=== PATIENT | female | born 1990 | race African-American/Black ===

== ENCOUNTER 2016-12-29 05:03 | Emergency (ER) | payer MEDICAID ==
[~2016-12-29] VITALS: Ht 175.3 cm; Wt 65.0 kg
[~2016-12-29 05:03] MED LIST: DOXY100T PO; MACR100C PO
[2016-12-29 05:05] VITALS: BP 137/80; PULSE 80; RESP 16; TEMP 97.9; O2SAT 100
--- NOTE | 2016-12-29 05:19 | PD ---
HPI Chief Complaint: Injury Time Seen by Provider: 05:10 Travel History International Travel<30 days: No Contact w/Intl Traveler<30days: No Traveled to known affect area: No History of Present Illness HPI 26-year-old female presents for evaluation of left arm pain. Symptoms started tonight. She describes it as a aching, pain in the posterior left proximal arm that is worse with movement. She tried doing pushups and this activity reproduced the pain. Is any trauma. She does note that she carries her child in a car seat most of time and she carried the child more than usual today. Denies any focal weakness. Denies any associated signs or symptoms. She has no other complaints today. PFSH Past Medical History Medical History: Denies Significant Hx Diminished Hearing: No Immunizations Current: Yes Tetanus Vaccination: < 5 Years Influenza Vaccination: No ?: Not : 3 Para: 1 : 1 Past Surgical History Surgical History: No Previous Surgery Social History Alcohol Use: No Tobacco Use: Yes (quit) Substance Use: No Allergies-Medications (Allergen,Severity, Reaction): Coded Allergies: No Known Allergies (Verified , 12/29/16) Reported Meds & Prescriptions Reported Meds & Active Scripts Active No Active Prescriptions or Reported Medications Review of Systems Musculoskeletal: Positive: Pain, No: Limited ROM, Edema Skin: No Rash, No Lumps Physical Exam Narrative GENERAL: Well-developed well-nourished female in no acute distress SKIN: Warm and dry. No bruising or soft tissue swelling CARDIOVASCULAR: Regular rate and rhythm. No murmur appreciated. RESPIRATORY: No accessory muscle use. Clear to auscultation. Breath sounds equal bilaterally. Extremities: There is no reproducible bony tenderness to palpation. There is no soft tissue swelling. 2+ radial pulse, capillary refill less than 2 seconds in all digits of the left and right hand. The patient maintains full range of motion of the upper extremities. She has 5 out of 5 muscle strength on flexion and extension, shoulder abduction and adduction, normal embedded software architect strength bilaterally. She does have pain with extension of the left arm against resistance. The pain is in the posterior proximal left arm. Data Data Last Documented VS Vital Signs Date Time Temp Pulse Resp B/P Pulse Ox O2 Delivery O2 Flow Rate FiO2 12/29/16 05:05 97.9 80 16 137/80 100 Orders Ketorolac Inj (Toradol Inj) (12/29/16 05:30) [facility] Medical Decision Making Medical Screen Exam Complete: Yes Emergency Medical Condition: Yes Medical Record Reviewed: Yes Differential Diagnosis Triceps strain, tendinitis, occult fracture Narrative Course The patient appears to have a strain to her triceps muscle. The patient will be given a dose of Toradol here. Recommended [id number] ibuprofen, activity modification. She is stable for discharge. Diagnosis Primary Impression: Triceps strain Qualified Code: S46.312A - Triceps strain, left, initial encounter Additional Instructions: Avoid activities that aggravate the pain. Take [id number] ibuprofen as needed for discomfort per dosing instructions on the bottle. Take with meals. Follow-up with primary care physician as needed. Return for any emergent medical conditions. Med/Other Pt SpecificInfo: No Change to Meds Scripts No Active Prescriptions or Reported Meds Disposition: 01 DISCHARGE HOME Condition: Stable Lester Jesus Dec 29, 2016 05:19
[2016-12-29] MEDS ORDERED: KETOROLAC TROMETHAMINE 60 MG/2 ML (IM) VIAL IM ONE (05:30)
== END 2016-12-29 05:24 | disposition home or self-care (01) ==
LOC: NEPK 05:03
DX: S46.312A Strain of muscle, fascia and tendon of triceps, left arm, initial encounter (principal); X50.0XXA Overexertion from strenuous movement or load, initial encounter; X50.1XXA Overexertion from prolonged static or awkward postures, initial encounter; Y93.89 Activity, other specified; Y92.89 Other specified places as the place of occurrence of the external cause; Y99.8 Other external cause status
CPT/HCPCS: 99283

== ENCOUNTER 2017-12-16 12:25 | Emergency (ER) | payer SELFPAY ==
[~2017-12-16] VITALS: Ht 167.6 cm; Wt 72.7 kg
[2017-12-16 13:23] VITALS: BP 137/82; PULSE 75; RESP 18; TEMP 97.9; O2SAT 99
[2017-12-16] MEDS ORDERED: SODIUM CHLOR 0.9% 1000 ML INJ 1,000 ML IV ONE (15:15)
--- NOTE | 2017-12-16 15:20 | PD ---
HPI Chief Complaint: Alcohol/Drug Intoxication Time Seen by Provider: 15:12 Travel History International Travel<30 days: No Contact w/Intl Traveler<30days: No Traveled to known affect area: No History of Present Illness HPI Patient is 27-year-old female presenting to the emergency for evaluation of nausea vomiting. Patient states she was binge drinking from 10 PM last night to 4 AM this morning. At approximately 10 AM this morning she reported 3 episodes of vomiting. She has not vomited since 12 PM. She states that she felt nauseated but that has improved since her presentation in the emergency department 3 hours ago. She denies any abdominal pain, headache, shortness of breath. Patient reports that she drinks often. She denies any significant past medical history. She currently has her menstrual cycle. Symptom onset was sudden, symptoms are moderate in nature. Symptoms are improving spontaneously. PFSH Past Medical History Medical History: Denies Significant Hx Diminished Hearing: No Immunizations Current: Yes ?: Not LMP: 12/16/17 : 3 Para: 1 : 1 Social History Alcohol Use: Yes (Daily) Tobacco Use: Yes (quit) Substance Use: No Allergies-Medications (Allergen,Severity, Reaction): Coded Allergies: No Known Allergies (Verified , 12/29/16) Reported Meds & Prescriptions Reported Meds & Active Scripts Active No Active Prescriptions or Reported Medications Review of Systems Except as stated in HPI: all other systems reviewed are Neg HENT: No: Headaches Cardiovascular: No: Chest Pain or Discomfort Respiratory: No: Shortness of Breath Gastrointestinal: Positive: Nausea, Vomiting, No: Abdominal Pain Physical Exam Narrative GENERAL: Well-developed, well-nourished, alert -[place] female. Presenting in no acute distress. SKIN: Warm and dry. HEAD: Atraumatic. Normocephalic. EYES: Pupils equal and round. No scleral icterus. No injection or drainage. ENT: No nasal bleeding or discharge. Mucous membranes pink and moist. NECK: Trachea midline. No JVD. CARDIOVASCULAR: Regular rate and rhythm. RESPIRATORY: No accessory muscle use. Clear to auscultation. Breath sounds equal bilaterally. GASTROINTESTINAL: Abdomen soft, non-tender, nondistended. Hepatic and splenic margins not palpable. Positive bowel sounds, no rebound, no guarding. MUSCULOSKELETAL: Extremities without clubbing, cyanosis, or edema. No obvious deformities. NEUROLOGICAL: Awake and alert. No obvious cranial nerve deficits. Motor grossly within normal limits. Five out of 5 muscle strength in the arms and legs. Normal speech. PSYCHIATRIC: Appropriate mood and affect; insight and judgment normal. Data Data Last Documented VS Vital Signs Date Time Temp Pulse Resp B/P (MAP) Pulse Ox O2 Delivery O2 Flow Rate FiO2 12/16/17 13:23 97.9 75 18 137/82 (100) 99 Orders Orders Sodium Chlor 0.9% 1000 Ml Inj (Ns 1000 M (12/16/17 15:15) [facility] Medical Decision Making Medical Screen Exam Complete: Yes Emergency Medical Condition: Yes Interpretation(s) Vital Signs Date Time Temp Pulse Resp B/P (MAP) Pulse Ox O2 Delivery O2 Flow Rate FiO2 12/16/17 13:23 97.9 75 18 137/82 (100) 99 Differential Diagnosis Gastritis versus metabolic abnormality versus alcohol-induced nausea vomiting versus other Narrative Course Patient is a well-appearing 27-year-old female presenting for evaluation of nausea vomiting after binge drinking all night. Patient vomited for approximately 2 hour window. She has not vomited since she has been in the emergency department for the last 3 hours. Patient will be given an oral fluid challenge, if she tolerates to be discharged home. Patient has tolerated Gatorade. She will be discharged home. She is advised to avoid binge drinking. Patient stable for discharge. Diagnosis Primary Impression: Alcohol consumption binge drinking Additional Impression: Gastrointestinal symptom Referrals: Primary Care Physician Patient Instructions: Abuse of Alcohol (GEN), Alcohol Dependence (GEN), Alcohol Intoxication (DC), General Instructions Additional Instructions: Avoid binge drinking Follow-up with your primary doctor Return to emergency department for any new worsening symptoms Med/Other Pt SpecificInfo: No Meds Exist/No RX given Scripts No Active Prescriptions or Reported Meds Disposition: 01 DISCHARGE HOME Condition: Stable Cinthia Page Dec 16, 2017 15:20
== END 2017-12-16 16:26 | disposition home or self-care (01) ==
LOC: NEPD 12:25
DX: R11.2 Nausea with vomiting, unspecified (principal)
CPT/HCPCS: 99281